=== PATIENT | male | born 1935 | race Caucasian/White ===

== ENCOUNTER 2019-04-25 18:46 | Inpatient (IN) | payer OTHER, MEDICARE ==
[2019-04-25] MEDS ORDERED: Sodium Chloride 0.9% 10 ML Syringe FLUSH PRN (19:08)
[2019-04-25] MEDS ORDERED: Sodium Chloride 0.9% 2.5 ML Syringe FLUSH PRN (19:08)
--- NOTE | 2019-04-25 19:12 | EDM.PDOC ---
ED HPI GENERAL MEDICAL PROBLEM - General Chief Complaint: Chest Pain Stated Complaint: CHEST PAIN Time Seen by Provider: 04/25/19 19:02 - History of Present Illness INITIAL COMMENTS - FREE TEXT/NARRATIVE: HISTORY AND PHYSICAL: History of present illness: The patient is an 84-year-old male who presents via [facility] with complaints of chest pain that he says started at 1 PM after he was drinking soda. The story that was given to triage and then to the mid-level provider and then to me keeps evolving and changing. The patient was seen here 2 days ago but doesn't recall being here and says that he was "not that person". He doesn' t recall getting prescriptions for his medications and he says he is only on one blood pressure medicine and one diabetic med not 2 blood pressure medicines and 2 diabetic meds. He says that in the past he has had issues with food "sticking" in his throat and he says that prior to today's symptoms he felt like there was something "sticking" but he had not eaten food recently. He drank a soda and tolerated that--" it slipped down just fine"--- and then felt this epigastric discomfort which was radiating to his lower mid chest. There is no radiation with the pain and since that time he has had 10-15 episodes of this vague discomfort in his lower mid sternum which comes and goes. It does not radiate to his back and does not seem to be associated with other symptoms but as I said his story changes depending on who the interviewer is. Initially he told us that it was a 2-3/10 but on my personal evaluation he said it was gone. He's never had abdominal pain never had nausea or vomiting and never had diarrhea. He denies his abdomen is bloated. He does not feel short of breath. The patient received aspirin and one sublingual nitroglycerin per EMS. He is evaluated here after those medications. He had told the ambulance people that his pain was a 4/10 The patient was seen here in emergency department 2 days ago on April 22 for complaints of elevated blood pressure and being out of his meds for 2 weeks. He had an EKG which is similar to today's and at that time he had no chest pain. He was given prescriptions for his diabetic meds as well as his 2 blood pressure medications Review of systems: As per history of present illness and below otherwise all systems reviewed and negative. Past medical history: As per history of present illness and as reviewed below otherwise noncontributory. Surgical history: As per history of present illness and as reviewed below otherwise noncontributory. Social history: No reported history of drug or alcohol abuse. Family history: As per history of present illness and as reviewed below otherwise noncontributory. Physical exam: General: Well-developed well-nourished man who is nontoxic and vital signs are by me. He speaking clearly and easily in the ED and is tolerating his secretions. His voice is not hoarse or muffled HEENT: Atraumatic, normocephalic, , negative for conjunctival pallor or scleral icterus, mucous membranes moist, throat clear, neck supple, nontender, trachea midline. Lungs: Clear to auscultation, breath sounds equal bilaterally, chest nontender. Heart: S1S2, regular, negative for clicks, rubs, or JVD. 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 The patient has tympany on percussion throughout his entire abdomen and he has a soft reducible umbilical hernia. Bowel sounds are hyperactive Negative for masses or hepatosplenomegaly. Negative for costovertebral tenderness. Pelvis: Stable nontender. Genitourinary: Deferred. Rectal: Deferred. Extremities: Atraumatic, negative for cords or calf pain. Neurovascular unremarkable. No pedal edema or leg asymmetry Neuro: Awake, alert, oriented. Cranial nerves II through XII unremarkable. Cerebellum unremarkable. Motor and sensory unremarkable throughout. Exam nonfocal. Diagnostics: EKG chest x-ray/abdominal films CBC CMP troponin INR UA with reflex Therapeutics: Patient received aspirin 324 mg and nitroglycerin sublingual 1 in route per EMS IV O2 monitor Protonix nitro paste Rocephin 2045: Patient has not had any chest pain here in the ED and he is aware of all testing results. We will give him a dose of Rocephin and I have consulted and spoken with Dr. Lua who agrees with admission and is aware of this full case and the odd presentation. He would like an inpatient admission Impression: Atypical epigastric/chest pain rule out esophageal spasm versus cardiac, right lower lobe pneumonia asymptomatic, history of hypertension and diabetes Definitive disposition and diagnosis as appropriate pending reevaluation and review of above. 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 ED EXAM, GENERAL - Physical Exam Exam: See Below (See dictation) Course - Vital Signs Last Recorded V/S: Last Vital Signs Temp 37.7 C 04/25/19 18:51 Pulse 82 04/25/19 20:05 Resp 16 04/25/19 20:05 BP 141/72 H 04/25/19 20:05 Pulse Ox 97 04/25/19 20:05 - Orders/Labs/Meds Orders: Active Orders 24 hr Category Date Time Status Patient Status [ADT] Stat ADT 04/25/19 20:48 Ordered Blood Glucose Check, Bedside [RC] ONETIME Care 04/25/19 19:08 Active Cardiac Monitoring [RC] . DIRECTED Care 04/25/19 19:08 Active EKG Documentation Completion [RC] STAT Care 04/25/19 19:08 Active Oxygen Therapy, ED [RC] ASDIRECTED Care 04/25/19 19:08 Active Pulse Oximetry [RC] ASDIRECTED Care 04/25/19 19:08 Active Sodium Chloride 0.9% [Saline Flush] Med 04/25/19 19:08 Active 10 ml FLUSH ASDIRECTED PRN Sodium Chloride 0.9% [Saline Flush] Med 04/25/19 19:08 Active 2.5 ml FLUSH ASDIRECTED PRN cefTRIAXone [Rocephin in Dextrose,Iso-Osm 2 GM/50 ML] 2 Med 04/25/19 20:35 Active gm Premix Bag 1 bag IV ONETIME Saline Lock Insert [OM.PC] Stat Oth 04/25/19 19:08 Ordered Medication Orders Ceftriaxone Sodium/Dextrose 2 (gm/ Premix) 50 mls @ 100 mls/hr IV ONETIME ONE Stop: 04/25/19 21:04 Last Admin: 04/25/19 20:44 Dose: 100 mls/hr Sodium Chloride (Saline Flush) 10 ml FLUSH ASDIRECTED PRN PRN Reason: Keep Vein Open Last Admin: 04/25/19 20:18 Dose: 10 ml Sodium Chloride (Saline Flush) 2.5 ml FLUSH ASDIRECTED PRN PRN Reason: Keep Vein Open Last Admin: 04/25/19 20:18 Dose: 2.5 ml Labs: Laboratory Tests 04/25/19 04/25/19 04/25/19 Range/Units 18:47 18:47 18:47 WBC 8.37 (4.0-11.0) K/uL RBC 3.60 L (4.50-5.90) M/uL Hgb 11.7 L (13.0-17.0) g/dL Hct 32.9 L (38.0-50.0) % MCV 91.4 (80.0-98.0) fL MCH 32.5 H (27.0-32.0) pg MCHC 35.6 (31.0-37.0) g/dL RDW Std Deviation 42.3 (28.0-62.0) fl RDW Coeff of Lupillo 13 (11.0-15.0) % Plt Count 194 (150-400) K/uL MPV 10.40 (7.40-12.00) fL Neut % (Auto) 77.6 (48.0-80.0) % Lymph % (Auto) 11.2 L (16.0-40.0) % [place] % (Auto) 8.2 (0.0-15.0) % Eos % (Auto) 2.5 (0.0-7.0) % Baso % (Auto) 0.5 (0.0-1.5) % Neut # (Auto) 6.5 H (1.4-5.7) K/uL Lymph # (Auto) 0.9 (0.6-2.4) K/uL [place] # (Auto) 0.7 (0.0-0.8) K/uL Eos # (Auto) 0.2 (0.0-0.7) K/uL Baso # (Auto) 0.0 (0.0-0.1) K/uL Nucleated RBC % 0.0 /100WBC Nucleated RBCs # 0 K/uL INR 1.11 Sodium 134 L (136-148) mmol/L Potassium 4.3 (3.5-5.1) mmol/L Chloride 99 (98-107) mmol/L Carbon Dioxide 25.4 (21.0-32.0) mmol/L BUN 16 (7.0-18.0) mg/dL Creatinine 1.4 H (0.8-1.3) mg/dL Est Cr Clr Drug Dosing TNP Estimated GFR (MDRD) 48.5 ml/min Glucose 259 H (74-106) mg/dL Calcium 9.8 (8.5-10.1) mg/dL Total Bilirubin 0.4 (0.2-1.0) mg/dL AST 26 (15-37) IU/L ALT 18 (14-63) IU/L Alkaline Phosphatase 122 H (46-116) U/L Troponin I < 0.050 (0.000-0.056) ng/mL Total Protein 8.1 (6.4-8.2) g/dL Albumin 3.0 L (3.4-5.0) g/dL Globulin 5.1 H (2.6-4.0) g/dL Albumin/Globulin Ratio 0.6 L (0.9-1.6) Urine Color Urine Appearance Urine pH (5.0-8.0) Ur Specific [place] (1.001-1.035) Urine Protein (NEGATIVE) mg/dL Urine Glucose (UA) (NEGATIVE) mg/dL Urine Ketones (NEGATIVE) mg/dL Urine Occult Blood (NEGATIVE) Urine Nitrite (NEGATIVE) Urine Bilirubin (NEGATIVE) Urine Urobilinogen (<2.0) EU/dL Ur Leukocyte Esterase (NEGATIVE) Urine RBC (0-2/HPF) Urine WBC (0-5/HPF) Ur Epithelial Cells (NONE-FEW) Urine Bacteria (NEGATIVE) Hyaline Casts (0-2/LPF) 04/25/19 Range/Units 19:37 WBC (4.0-11.0) K/uL RBC (4.50-5.90) M/uL Hgb (13.0-17.0) g/dL Hct (38.0-50.0) % MCV (80.0-98.0) fL MCH (27.0-32.0) pg MCHC (31.0-37.0) g/dL RDW Std Deviation (28.0-62.0) fl RDW Coeff of [place]up[place] (11.0-15.0) % Plt Count (150-400) K/uL MPV (7.40-12.00) fL Neut % (Auto) (48.0-80.0) % Lymph % (Auto) (16.0-40.0) % [place] % (Auto) (0.0-15.0) % Eos % (Auto) (0.0-7.0) % Baso % (Auto) (0.0-1.5) % Neut # (Auto) (1.4-5.7) K/uL Lymph # (Auto) (0.6-2.4) K/uL [place] # (Auto) (0.0-0.8) K/uL Eos # (Auto) (0.0-0.7) K/uL Baso # (Auto) (0.0-0.1) K/uL Nucleated RBC % /100WBC Nucleated RBCs # K/uL INR Sodium (136-148) mmol/L Potassium (3.5-5.1) mmol/L Chloride (98-107) mmol/L Carbon Dioxide (21.0-32.0) mmol/L BUN (7.0-18.0) mg/dL Creatinine (0.8-1.3) mg/dL Est Cr Clr Drug Dosing Estimated GFR (MDRD) ml/min Glucose (74-106) mg/dL Calcium (8.5-10.1) mg/dL Total Bilirubin (0.2-1.0) mg/dL AST (15-37) IU/L ALT (14-63) IU/L Alkaline Phosphatase (46-116) U/L Troponin I (0.000-0.056) ng/mL Total Protein (6.4-8.2) g/dL Albumin (3.4-5.0) g/dL Globulin (2.6-4.0) g/dL Albumin/Globulin Ratio (0.9-1.6) Urine Color YELLOW Urine Appearance SLT CLOUDY Urine pH 5.0 (5.0-8.0) Ur Specific [place] 1.020 (1.001-1.035) Urine Protein TRACE H (NEGATIVE) mg/dL Urine Glucose (UA) NEGATIVE (NEGATIVE) mg/dL Urine Ketones NEGATIVE (NEGATIVE) mg/dL Urine Occult Blood NEGATIVE (NEGATIVE) Urine Nitrite NEGATIVE (NEGATIVE) Urine Bilirubin NEGATIVE (NEGATIVE) Urine Urobilinogen 0.2 (<2.0) EU/dL Ur Leukocyte Esterase NEGATIVE (NEGATIVE) Urine RBC NONE SEEN (0-2/HPF) Urine WBC NONE SEEN (0-5/HPF) Ur Epithelial Cells RARE (NONE-FEW) Urine Bacteria RARE (NEGATIVE) Hyaline Casts 8-12 (0-2/LPF) Meds: Medications Generic Name Dose Route Start Last Admin Trade Name Freq PRN Reason Stop Dose Admin Ceftriaxone Sodium/Dextrose 2 50 mls @ 100 mls/hr 04/25/19 20:35 04/25/19 20: 44 gm/ Premix IV 04/25/19 21:04 100 mls/hr ONETIME ONE Administration Sodium Chloride 10 ml 04/25/19 19:08 04/25/19 20:18 Saline Flush FLUSH 10 ml ASDIRECTED PRN Administration Keep Vein Open Sodium Chloride 2.5 ml 04/25/19 19:08 04/25/19 20:18 Saline Flush FLUSH 2.5 ml ASDIRECTED PRN Administration Keep Vein Open Discontinued Medications Generic Name Dose Route Start Last Admin Trade Name Freq PRN Reason Stop Dose Admin Sodium Chloride Confirm 04/25/19 20:11 Normal Saline Administered 04/25/19 20:12 Dose 20 mls @ as directed .ROUTE .STK-MED ONE Nitroglycerin 0.5 gm 04/25/19 19:36 04/25/19 20:18 Nitro-Bid 2% TOP 04/25/19 19:37 0.5 gm ONETIME ONE Administration Pantoprazole Sodium 80 mg 04/25/19 19:36 04/25/19 20:17 Protonix Iv IVPUSH 04/25/19 19:37 80 mg .BOLUS ONE Administration Departure - Departure Time of Disposition: 20:50 Disposition: Admitted As Inpatient 68 Condition: Good Clinical Impression: Atypical chest pain Pneumonia Qualifiers: Pneumonia type: due to unspecified organism Laterality: right Lung location: lower lobe of lung Qualified Code(s): J18.1 - Lobar pneumonia, unspecified organism - Discharge Information Referrals: PCP,None [Primary Care Provider] - Forms: ED Department Discharge - My Orders Last 24 Hours: My Active Orders 04/25/19 19:08 Blood Glucose Check, Bedside [RC] ONETIME Cardiac Monitoring [RC] . DIRECTED EKG Documentation Completion [RC] STAT Oxygen Therapy, ED [RC] ASDIRECTED Pulse Oximetry [RC] ASDIRECTED Sodium Chloride 0.9% [Saline Flush] 10 ml FLUSH ASDIRECTED PRN Sodium Chloride 0.9% [Saline Flush] 2.5 ml FLUSH ASDIRECTED PRN Saline Lock Insert [OM.PC] Stat 04/25/19 20:35 cefTRIAXone [Rocephin in Dextrose,Iso-Osm 2 GM/50 ML] 2 gm Premix Bag 1 bag IV ONETIME 04/25/19 20:48 Patient Status [ADT] Stat - Assessment/Plan Last 24 Hours: My Active Orders 04/25/19 19:08 Blood Glucose Check, Bedside [RC] ONETIME Cardiac Monitoring [RC] . DIRECTED EKG Documentation Completion [RC] STAT Oxygen Therapy, ED [RC] ASDIRECTED Pulse Oximetry [RC] ASDIRECTED Sodium Chloride 0.9% [Saline Flush] 10 ml FLUSH ASDIRECTED PRN Sodium Chloride 0.9% [Saline Flush] 2.5 ml FLUSH ASDIRECTED PRN Saline Lock Insert [OM.PC] Stat 04/25/19 20:35 cefTRIAXone [Rocephin in Dextrose,Iso-Osm 2 GM/50 ML] 2 gm Premix Bag 1 bag IV ONETIME 04/25/19 20:48 Patient Status [ADT] Stat
[2019-04-25 19:27] LABS: CHLORIDE,CL 99 mmol/L (98-107); SODIUM,NA 134 mmol/L (136-148)
[2019-04-25] MEDS ORDERED: Pantoprazole 40 MG Vial IVPUSH ONE (19:36)
[2019-04-25] MEDS ORDERED: Nitroglycerin 2% Oint 1 GM UD Packet TOP ONE (19:36)
[2019-04-25] MEDS ORDERED: Sodium Chloride 0.9% 20 ML ONE (20:11)
--- NOTE | 2019-04-25 20:13 | CR ---
INDICATION: : Abdominal pain COMPARISON: None available. FINDINGS: Erect and supine films of the abdomen were combined with an erect film of the chest. In the abdomen, there is no sign of distention of the small bowel or colon to suggest obstruction or ileus. There is no sign of free air or distinct mass. There is mild hypertrophic change throughout the lumbar spine. The rest of the osseous structures are normal in appearance. There is moderate consolidation of the right lower lobe along with a mild right pleural effusion, findings suggestive of a right lower lobe pneumonia. The rest of the chest is clear. IMPRESSION: Normal appearance of the abdomen for the patient`s age with no sign of obstruction or ileus. Moderate consolidation of the right lower lobe with a mild right pleural effusion, suggestive of right lower lobe pneumonia. Dictated by Jadon Jones MD @ Apr 25 2019 8:11PM Signed by Dr. Jadon Jones @ Apr 25 2019 8:13PM
--- NOTE | 2019-04-25 20:16 | CR ---
HISTORY: Neck pain. COMPARISON: None available. FINDINGS: AP and lateral views of the soft tissues of the neck were obtained. The airway structures are normal in appearance. The epiglottis is normal in appearance. There is no displacement of the trachea. No radiopaque foreign bodies are evident. The prevertebral soft tissues and cervical spine are normal in appearance. There is prominent C4-5 and C5-6 disc degenerative disease. There is minimal anterior subluxation of C4 on C5. The rest of the cervical vertebral bodies are in anatomic alignment. The apices of the lungs are clear. IMPRESSION: Normal appearance of the soft tissue structures of the neck. 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 Dictated by Jadon Jones MD @ Apr 25 2019 8:13PM Signed by Dr. Jadon Jones @ Apr 25 2019 8:15PM
[2019-04-25] MEDS ORDERED: cefTRIAXone 2 GM in Premix Bag 1 BAG IV ONE (20:35)
[2019-04-25] MEDS ORDERED: Azithromycin 500 MG in Sodium Chloride 0.9% 500 ML IV SCH (22:30)
[2019-04-25] MEDS ORDERED: Azithromycin 500 MG in Sodium Chloride 0.9% 500 ML IV ONE (22:30)
[2019-04-25] MEDS ORDERED: Acetaminophen 325 MG Tab PO PRN (22:34)
[2019-04-25] MEDS ORDERED: Ondansetron 4 MG/2 ML SDV IVPUSH PRN (22:34)
[2019-04-25] MEDS: Sodium Chloride 0.9% 1,000 ML IV SCH (23:18)
--- NOTE | 2019-04-25 23:35 | PCM.HP ---
H&P History of Present Illness - General Date of Service: 04/25/19 Admit Problem/Dx: Admission Diagnosis/Problem Admission Diagnosis/Problem Pneumonia - History of Present Illness Initial Comments - Free Text/Narative: 84 yo male with pmh of hypertension, and diabetes who presents with one day history of right sided chest pain. The pain is sharp in nature and comes and goes. He has a productive cough since October of this year. About that time he states he has had a pneumonia. He denies any fevers, shortness of breath or abdominal pain. The medical record has him being seen in the ED three days ago with a complaint of hypertension and need for medication refills. He denies ever coming to the ED. - Related Data Allergies/Adverse Reactions: Allergies Allergy/AdvReac Type Severity Reaction Status Date / Time Sheng Allergy Cannot Uncoded 04/25/19 21:53 Remember Home Medications: Home Meds Lisinopril 1 tab PO DAILY 05/11/15 [History] NIFEdipine [Nifedipine ER] 2 tab PO BID 05/11/15 [History] metFORMIN [Glucophage] 1 tab PO BID 05/11/15 [History] Aspirin [Halfprin] 81 mg PO DAILY 04/25/19 [History] Ascorbate Calcium [Vitamin C] 500 mg PO BID 04/26/19 [History] Cholecalciferol (Vitamin D3) [Vitamin D3] PO DAILY 04/26/19 [History] Krill Oil 04/26/19 [History] Ubidecarenone [Co Q-10] 04/26/19 [History] Vitamin E 04/26/19 [History] Past Medical History Other HEENT History: 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 Cardiovascular History: Reports: Hypertension Endocrine/Metabolic History: Reports: Diabetes, Type II - Infectious Disease History Infectious Disease History: Reports: None Social & Family History - Family History Family Medical History: Noncontributory - Tobacco Use Smoking Status *Q: Former Smoker Used Tobacco, but Quit: Yes Month/Year Tobacco Last Used: 1985 Second Hand Smoke Exposure: No - Caffeine Use Caffeine Use: Reports: Coffee Caffeine Use Comment: 1 pot of coffee every morning - Recreational Drug Use Recreational Drug Use: No H&P Review of Systems - Review of Systems: Review Of Systems: ROS reveals no pertinent complaints other than HPI. Exam - Exam Exam: See Below - Vital Signs Vital Signs: Last Vital Signs Temp 36.4 C 04/25/19 21:49 Pulse 87 04/25/19 21:49 Resp 20 04/25/19 21:49 BP 139/73 04/25/19 21:49 Pulse Ox 94 L 04/25/19 21:49 Weight: 89.176 kg - Exam General: Alert, Oriented HEENT: Mucosa Moist & [place] Neck: Supple, Trachea Midline Lungs: Clear to Auscultation, Normal Respiratory Effort Cardiovascular: Regular Rate, Regular Rhythm GI/Abdominal Exam: Soft, Non-Tender Extremities: Non-Tender, No Pedal Edema Skin: Warm, Dry, Intact Neurological: Cranial Nerves Intact Neuro Extensive - Mental Status: Alert, Oriented x3, Other (does not know who president is, or any current events.) - Patient Data Lab Results Last 24 hrs: Laboratory Results - last 24 hr 04/25/19 04/25/19 04/25/19 Range/Units 18:47 18:47 18:47 WBC 8.37 (4.0-11.0) K/uL RBC 3.60 L (4.50-5.90) M/uL Hgb 11.7 L (13.0-17.0) g/dL Hct 32.9 L (38.0-50.0) % MCV 91.4 (80.0-98.0) fL MCH 32.5 H (27.0-32.0) pg MCHC 35.6 (31.0-37.0) g/dL RDW Std Deviation 42.3 (28.0-62.0) fl RDW Coeff of Lupillo 13 (11.0-15.0) % Plt Count 194 (150-400) K/uL MPV 10.40 (7.40-12.00) fL Neut % (Auto) 77.6 (48.0-80.0) % Lymph % (Auto) 11.2 L (16.0-40.0) % [place] % (Auto) 8.2 (0.0-15.0) % Eos % (Auto) 2.5 (0.0-7.0) % Baso % (Auto) 0.5 (0.0-1.5) % Neut # (Auto) 6.5 H (1.4-5.7) K/uL Lymph # (Auto) 0.9 (0.6-2.4) K/uL [place] # (Auto) 0.7 (0.0-0.8) K/uL Eos # (Auto) 0.2 (0.0-0.7) K/uL Baso # (Auto) 0.0 (0.0-0.1) K/uL Nucleated RBC % 0.0 /100WBC Nucleated RBCs # 0 K/uL INR 1.11 Sodium 134 L (136-148) mmol/L Potassium 4.3 (3.5-5.1) mmol/L Chloride 99 (98-107) mmol/L Carbon Dioxide 25.4 (21.0-32.0) mmol/L BUN 16 (7.0-18.0) mg/dL Creatinine 1.4 H (0.8-1.3) mg/dL Est Cr Clr Drug Dosing TNP Estimated GFR (MDRD) 48.5 ml/min Glucose 259 H (74-106) mg/dL Calcium 9.8 (8.5-10.1) mg/dL Total Bilirubin 0.4 (0.2-1.0) mg/dL AST 26 (15-37) IU/L ALT 18 (14-63) IU/L Alkaline Phosphatase 122 H (46-116) U/L Troponin I < 0.050 (0.000-0.056) ng/mL Total Protein 8.1 (6.4-8.2) g/dL Albumin 3.0 L (3.4-5.0) g/dL Globulin 5.1 H (2.6-4.0) g/dL Albumin/Globulin Ratio 0.6 L (0.9-1.6) Urine Color Urine Appearance Urine pH (5.0-8.0) Ur Specific [place] (1.001-1.035) Urine Protein (NEGATIVE) mg/dL Urine Glucose (UA) (NEGATIVE) mg/dL Urine Ketones (NEGATIVE) mg/dL Urine Occult Blood (NEGATIVE) Urine Nitrite (NEGATIVE) Urine Bilirubin (NEGATIVE) Urine Urobilinogen (<2.0) EU/dL Ur Leukocyte Esterase (NEGATIVE) Urine RBC (0-2/HPF) Urine WBC (0-5/HPF) Ur Epithelial Cells (NONE-FEW) Urine Bacteria (NEGATIVE) Hyaline Casts (0-2/LPF) 07/10/19 Range/Units 19:37 WBC (4.0-11.0) K/uL RBC (4.50-5.90) M/uL Hgb (13.0-17.0) g/dL Hct (38.0-50.0) % MCV (80.0-98.0) fL MCH (27.0-32.0) pg MCHC (31.0-37.0) g/dL RDW Std Deviation (28.0-62.0) fl RDW Coeff of Lupillo (11.0-15.0) % Plt Count (150-400) K/uL MPV (7.40-12.00) fL Neut % (Auto) (48.0-80.0) % Lymph % (Auto) (16.0-40.0) % [place] % (Auto) (0.0-15.0) % Eos % (Auto) (0.0-7.0) % Baso % (Auto) (0.0-1.5) % Neut # (Auto) (1.4-5.7) K/uL Lymph # (Auto) (0.6-2.4) K/uL [place] # (Auto) (0.0-0.8) K/uL Eos # (Auto) (0.0-0.7) K/uL Baso # (Auto) (0.0-0.1) K/uL Nucleated RBC % /100WBC Nucleated RBCs # K/uL INR Sodium (136-148) mmol/L Potassium (3.5-5.1) mmol/L Chloride (98-107) mmol/L Carbon Dioxide (21.0-32.0) mmol/L BUN (7.0-18.0) mg/dL Creatinine (0.8-1.3) mg/dL Est Cr Clr Drug Dosing Estimated GFR (MDRD) ml/min Glucose (74-106) mg/dL Calcium (8.5-10.1) mg/dL Total Bilirubin (0.2-1.0) mg/dL AST (15-37) IU/L ALT (14-63) IU/L Alkaline Phosphatase (46-116) U/L Troponin I (0.000-0.056) ng/mL Total Protein (6.4-8.2) g/dL Albumin (3.4-5.0) g/dL Globulin (2.6-4.0) g/dL Albumin/Globulin Ratio (0.9-1.6) Urine Color YELLOW Urine Appearance SLT CLOUDY Urine pH 5.0 (5.0-8.0) Ur Specific [place] 1.020 (1.001-1.035) Urine Protein TRACE H (NEGATIVE) mg/dL Urine Glucose (UA) NEGATIVE (NEGATIVE) mg/dL Urine Ketones NEGATIVE (NEGATIVE) mg/dL Urine Occult Blood NEGATIVE (NEGATIVE) Urine Nitrite NEGATIVE (NEGATIVE) Urine Bilirubin NEGATIVE (NEGATIVE) Urine Urobilinogen 0.2 (<2.0) EU/dL Ur Leukocyte Esterase NEGATIVE (NEGATIVE) Urine RBC NONE SEEN (0-2/HPF) Urine WBC NONE SEEN (0-5/HPF) Ur Epithelial Cells RARE (NONE-FEW) Urine Bacteria RARE (NEGATIVE) Hyaline Casts 8-12 (0-2/LPF) Result Diagrams: 04/26/19 05:00 04/26/19 05:00 Problem List Initiated/Reviewed/Updated: Yes Orders Last 24hrs: Active Orders 24 hr Category Date Time Status Patient Status [ADT] Stat ADT 04/25/19 20:48 Active Antiembolic Devices [RC] PER UNIT ROUTINE Care 04/25/19 23:28 Ordered Blood Glucose Check, Bedside [RC] ONETIME Care 04/25/19 19:08 Active Blood Glucose Check, Bedside [RC] TIDAC Care 04/25/19 22:33 Active Cardiac Monitoring [RC] . DIRECTED Care 04/25/19 19:08 Active Oxygen Therapy [RC] PRN Care 04/25/19 23:27 Ordered Oxygen Therapy, ED [RC] ASDIRECTED Care 04/25/19 19:08 Active Pulse Oximetry [RC] ASDIRECTED Care 04/25/19 19:08 Active Telemetry Monitoring [Cardiac Monitoring] [RC] . Care 04/25/19 22:40 Active DIRECTED Up ad Janine [RC] ASDIRECTED Care 04/25/19 23:27 Ordered VTE/DVT Education [RC] PER UNIT ROUTINE Care 04/25/19 23:27 Ordered Vital Signs [RC] Q4H Care 04/25/19 23:27 Ordered ADA Diabetic [[place] [employer] Diet] [DIET Diet 04/26/19 Breakfast Active ] BASIC METABOLIC PANEL,BMP [CHEM] Routine Lab 04/26/19 05:00 Ordered CBC WITH AUTO DIFF [HEME] Routine Lab 04/26/19 05:00 Ordered TROPONIN I [CHEM] Routine Lab 04/26/19 01:00 Ordered TROPONIN I [CHEM] Routine Lab 04/26/19 07:00 Ordered Acetaminophen [Tylenol] Med 04/25/19 22:34 Active 325 mg PO Q4H PRN Azithromycin [Zithromax] 500 mg Med 04/25/19 22:30 Active Sodium Chloride 0.9% [Normal Saline] 500 ml IV Q24H Insulin Aspart [NovoLOG] Med 04/26/19 07:30 Active See Protocol SUBCUT ACBED Lisinopril Med 04/26/19 09:00 Ordered 1 tab PO DAILY Ondansetron [Zofran] Med 04/25/19 22:34 Active 4 mg IVPUSH Q4H PRN Sodium Chloride 0.9% [Normal Saline] 1,000 ml Med 04/25/19 22:45 Active IV ASDIRECTED Sodium Chloride 0.9% [Saline Flush] Med 04/25/19 19:08 Active 10 ml FLUSH ASDIRECTED PRN Sodium Chloride 0.9% [Saline Flush] Med 04/25/19 19:08 Active 2.5 ml FLUSH ASDIRECTED PRN cefTRIAXone [Rocephin in Dextrose,Iso-Osm 1 GM/50 ML] 1 Med 04/26/19 21:00 Active gm Premix Bag 1 bag IV Q24H metFORMIN [Glucophage] Med 04/26/19 09:00 Ordered 850 mg PO BID Saline Lock Insert [OM.PC] Stat Oth 04/25/19 19:08 Ordered Sequential Compression Device [OM.PC] Per Unit Routine Oth 04/25/19 23:27 Ordered Resuscitation Status Routine Resus Stat 04/25/19 23:27 Ordered Medication Orders Acetaminophen (Tylenol) 325 mg PO Q4H PRN PRN Reason: Pain Ceftriaxone Sodium/Dextrose 1 (gm/ Premix) 50 mls @ 100 mls/hr IV Q24H [facility] Azithromycin 500 mg/ Sodium (Chloride) 500 mls @ 250 mls/hr IV Q24H [facility] Sodium Chloride (Normal Saline) 1,000 mls @ 125 mls/hr IV ASDIRECTED [facility] Last Admin: 04/25/19 23:18 Dose: 125 mls/hr Insulin Aspart (Novolog) 0 unit SUBCUT ACBED [facility]; Protocol Metformin HCl (Glucophage) 850 mg PO BID [facility] Non-Formulary Medication (Lisinopril) 1 tab PO DAILY [facility] Ondansetron HCl (Zofran) 4 mg IVPUSH Q4H PRN PRN Reason: Nausea Sodium Chloride (Saline Flush) 10 ml FLUSH ASDIRECTED PRN PRN Reason: Keep Vein Open Last Admin: 04/25/19 20:18 Dose: 10 ml Sodium Chloride (Saline Flush) 2.5 ml FLUSH ASDIRECTED PRN PRN Reason: Keep Vein Open Last Admin: 04/25/19 20:18 Dose: 2.5 ml Assessment/Plan Comment:: 84 yo male who presented with chest pain. We will admitt for pneumonia and treat with Rocephin and azithromycin. We may consider CT chest considering his chronic cough and atypical presentation. Patient may have mild cognitive impairment.
[2019-04-25] MEDS: Azithromycin 500 MG in Sodium Chloride 0.9% 250 ML IV SCH (23:38)
[2019-04-26] MEDS: Insulin Aspart 100 Units/ML 3 ML Pen SUBCUT SCH ×4 (09:17→21:22)
[2019-04-26] MEDS: Sodium Chloride 0.9% 1,000 ML IV SCH ×2 (09:23→18:21)
[2019-04-26] MEDS: Lisinopril 10 MG Tab PO SCH (09:28)
--- NOTE | 2019-04-26 10:16 | PCM.PN ---
- General Info Date of Service: 04/26/19 - Review of Systems Systems Review Comment:: patient still having chest pain - Patient Data Vitals - Most Recent: Last Vital Signs Temp 36.8 C 04/26/19 04:15 Pulse 85 04/26/19 04:15 Resp 20 04/26/19 04:15 BP 139/66 04/26/19 09:28 Pulse Ox 94 L 04/26/19 04:15 Weight - Most Recent: 89.176 kg I&O - Last 24 Hours: Intake & Output 04/25/19 04/26/19 04/26/19 22:59 06:59 14:59 Intake Total 920 Output Total 475 Balance 445 Lab Results Last 24 Hours: Laboratory Results - last 24 hr 04/25/19 04/25/19 04/25/19 Range/Units 18:47 18:47 18:47 WBC 8.37 (4.0-11.0) K/uL RBC 3.60 L (4.50-5.90) M/uL Hgb 11.7 L (13.0-17.0) g/dL Hct 32.9 L (38.0-50.0) % MCV 91.4 (80.0-98.0) fL MCH 32.5 H (27.0-32.0) pg MCHC 35.6 (31.0-37.0) g/dL RDW Std Deviation 42.3 (28.0-62.0) fl RDW Coeff of Lupillo 13 (11.0-15.0) % Plt Count 194 (150-400) K/uL MPV 10.40 (7.40-12.00) fL Neut % (Auto) 77.6 (48.0-80.0) % Lymph % (Auto) 11.2 L (16.0-40.0) % [place] % (Auto) 8.2 (0.0-15.0) % Eos % (Auto) 2.5 (0.0-7.0) % Baso % (Auto) 0.5 (0.0-1.5) % Neut # (Auto) 6.5 H (1.4-5.7) K/uL Lymph # (Auto) 0.9 (0.6-2.4) K/uL [place] # (Auto) 0.7 (0.0-0.8) K/uL Eos # (Auto) 0.2 (0.0-0.7) K/uL Baso # (Auto) 0.0 (0.0-0.1) K/uL Nucleated RBC % 0.0 /100WBC Nucleated RBCs # 0 K/uL INR 1.11 Sodium 134 L (136-148) mmol/L Potassium 4.3 (3.5-5.1) mmol/L Chloride 99 (98-107) mmol/L Carbon Dioxide 25.4 (21.0-32.0) mmol/L BUN 16 (7.0-18.0) mg/dL Creatinine 1.4 H (0.8-1.3) mg/dL Est Cr Clr Drug Dosing TNP Estimated GFR (MDRD) 48.5 ml/min Glucose 259 H (74-106) mg/dL POC Glucose (60-110) mg/dL Calcium 9.8 (8.5-10.1) mg/dL Total Bilirubin 0.4 (0.2-1.0) mg/dL AST 26 (15-37) IU/L ALT 18 (14-63) IU/L Alkaline Phosphatase 122 H (46-116) U/L Troponin I < 0.050 (0.000-0.056) ng/mL Total Protein 8.1 (6.4-8.2) g/dL Albumin 3.0 L (3.4-5.0) g/dL Globulin 5.1 H (2.6-4.0) g/dL Albumin/Globulin Ratio 0.6 L (0.9-1.6) Urine Color Urine Appearance Urine pH (5.0-8.0) Ur Specific [place] (1.001-1.035) Urine Protein (NEGATIVE) mg/dL Urine Glucose (UA) (NEGATIVE) mg/dL Urine Ketones (NEGATIVE) mg/dL Urine Occult Blood (NEGATIVE) Urine Nitrite (NEGATIVE) Urine Bilirubin (NEGATIVE) Urine Urobilinogen (<2.0) EU/dL Ur Leukocyte Esterase (NEGATIVE) Urine RBC (0-2/HPF) Urine WBC (0-5/HPF) Ur Epithelial Cells (NONE-FEW) Urine Bacteria (NEGATIVE) Hyaline Casts (0-2/LPF) 04/25/19 04/26/19 04/26/19 Range/Units 19:37 01:00 05:00 WBC 8.30 (4.0-11.0) K/uL RBC 3.45 L (4.50-5.90) M/uL Hgb 11.2 L (13.0-17.0) g/dL Hct 31.6 L (38.0-50.0) % MCV 91.6 (80.0-98.0) fL MCH 32.5 H (27.0-32.0) pg MCHC 35.4 (31.0-37.0) g/dL RDW Std Deviation 42.4 (28.0-62.0) fl RDW Coeff of [place]up[place] 13 (11.0-15.0) % Plt Count 171 (150-400) K/uL MPV 9.90 (7.40-12.00) fL Neut % (Auto) 76.8 (48.0-80.0) % Lymph % (Auto) 10.7 L (16.0-40.0) % [place] % (Auto) 9.0 (0.0-15.0) % Eos % (Auto) 3.1 (0.0-7.0) % Baso % (Auto) 0.4 (0.0-1.5) % Neut # (Auto) 6.4 H (1.4-5.7) K/uL Lymph # (Auto) 0.9 (0.6-2.4) K/uL [place] # (Auto) 0.8 (0.0-0.8) K/uL Eos # (Auto) 0.3 (0.0-0.7) K/uL Baso # (Auto) 0.0 (0.0-0.1) K/uL Nucleated RBC % 0.0 /100WBC Nucleated RBCs # 0 K/uL INR Sodium (136-148) mmol/L Potassium (3.5-5.1) mmol/L Chloride (98-107) mmol/L Carbon Dioxide (21.0-32.0) mmol/L BUN (7.0-18.0) mg/dL Creatinine (0.8-1.3) mg/dL Est Cr Clr Drug Dosing Estimated GFR (MDRD) ml/min Glucose (74-106) mg/dL POC Glucose (60-110) mg/dL Calcium (8.5-10.1) mg/dL Total Bilirubin (0.2-1.0) mg/dL AST (15-37) IU/L ALT (14-63) IU/L Alkaline Phosphatase (46-116) U/L Troponin I < 0.050 (0.000-0.056) ng/mL Total Protein (6.4-8.2) g/dL Albumin (3.4-5.0) g/dL Globulin (2.6-4.0) g/dL Albumin/Globulin Ratio (0.9-1.6) Urine Color YELLOW Urine Appearance SLT CLOUDY Urine pH 5.0 (5.0-8.0) Ur Specific [place] 1.020 (1.001-1.035) Urine Protein TRACE H (NEGATIVE) mg/dL Urine Glucose (UA) NEGATIVE (NEGATIVE) mg/dL Urine Ketones NEGATIVE (NEGATIVE) mg/dL Urine Occult Blood NEGATIVE (NEGATIVE) Urine Nitrite NEGATIVE (NEGATIVE) Urine Bilirubin NEGATIVE (NEGATIVE) Urine Urobilinogen 0.2 (<2.0) EU/dL Ur Leukocyte Esterase NEGATIVE (NEGATIVE) Urine RBC NONE SEEN (0-2/HPF) Urine WBC NONE SEEN (0-5/HPF) Ur Epithelial Cells RARE (NONE-FEW) Urine Bacteria RARE (NEGATIVE) Hyaline Casts 8-12 (0-2/LPF) 04/26/19 04/26/19 04/26/19 Range/Units 05:00 06:44 06:55 WBC (4.0-11.0) K/uL RBC (4.50-5.90) M/uL Hgb (13.0-17.0) g/dL Hct (38.0-50.0) % MCV (80.0-98.0) fL MCH (27.0-32.0) pg MCHC (31.0-37.0) g/dL RDW Std Deviation (28.0-62.0) fl RDW Coeff of Lupillo (11.0-15.0) % Plt Count (150-400) K/uL MPV (7.40-12.00) fL Neut % (Auto) (48.0-80.0) % Lymph % (Auto) (16.0-40.0) % Bennett % (Auto) (0.0-15.0) % Eos % (Auto) (0.0-7.0) % Baso % (Auto) (0.0-1.5) % Neut # (Auto) (1.4-5.7) K/uL Lymph # (Auto) (0.6-2.4) K/uL Bennett # (Auto) (0.0-0.8) K/uL Eos # (Auto) (0.0-0.7) K/uL Baso # (Auto) (0.0-0.1) K/uL Nucleated RBC % /100WBC Nucleated RBCs # K/uL INR Sodium 137 (136-148) mmol/L Potassium 4.2 (3.5-5.1) mmol/L Chloride 103 (98-107) mmol/L Carbon Dioxide 27.2 (21.0-32.0) mmol/L BUN 15 (7.0-18.0) mg/dL Creatinine 1.3 (0.8-1.3) mg/dL Est Cr Clr Drug Dosing 40.96 Estimated GFR (MDRD) 52.9 ml/min Glucose 163 H (74-106) mg/dL POC Glucose 178 H (60-110) mg/dL Calcium 9.1 (8.5-10.1) mg/dL Total Bilirubin (0.2-1.0) mg/dL AST (15-37) IU/L ALT (14-63) IU/L Alkaline Phosphatase (46-116) U/L Troponin I < 0.050 (0.000-0.056) ng/mL Total Protein (6.4-8.2) g/dL Albumin (3.4-5.0) g/dL Globulin (2.6-4.0) g/dL Albumin/Globulin Ratio (0.9-1.6) Urine Color Urine Appearance Urine pH (5.0-8.0) Ur Specific [place] (1.001-1.035) Urine Protein (NEGATIVE) mg/dL Urine Glucose (UA) (NEGATIVE) mg/dL Urine Ketones (NEGATIVE) mg/dL Urine Occult Blood (NEGATIVE) Urine Nitrite (NEGATIVE) Urine Bilirubin (NEGATIVE) Urine Urobilinogen (<2.0) EU/dL Ur Leukocyte Esterase (NEGATIVE) Urine RBC (0-2/HPF) Urine WBC (0-5/HPF) Ur Epithelial Cells (NONE-FEW) Urine Bacteria (NEGATIVE) Hyaline Casts (0-2/LPF) Med Orders - Current: Current Medications Acetaminophen (Tylenol) 325 mg PO Q4H PRN PRN Reason: Pain Ceftriaxone Sodium/Dextrose 1 (gm/ Premix) 50 mls @ 100 mls/hr IV Q24H [facility] Sodium Chloride (Normal Saline) 1,000 mls @ 125 mls/hr IV ASDIRECTED [facility] Last Admin: 04/26/19 09:23 Dose: 125 mls/hr Azithromycin 500 mg/ Sodium (Chloride) 250 mls @ 125 mls/hr IV Q24H [facility] Last Admin: 04/25/19 23:38 Dose: 125 mls/hr Insulin Aspart (Novolog) 0 unit SUBCUT ACBED [facility]; Protocol Last Admin: 04/26/19 09:17 Dose: 1 unit Lisinopril (Prinivil) 20 mg PO DAILY [facility] Last Admin: 04/26/19 09:28 Dose: 20 mg Metformin HCl (Glucophage) 850 mg PO BID [facility] Last Admin: 04/26/19 09:29 Dose: 850 mg Ondansetron HCl (Zofran) 4 mg IVPUSH Q4H PRN PRN Reason: Nausea Sodium Chloride (Saline Flush) 10 ml FLUSH ASDIRECTED PRN PRN Reason: Keep Vein Open Last Admin: 04/25/19 20:18 Dose: 10 ml Sodium Chloride (Saline Flush) 2.5 ml FLUSH ASDIRECTED PRN PRN Reason: Keep Vein Open Last Admin: 04/25/19 20:18 Dose: 2.5 ml Discontinued Medications Sodium Chloride (Normal Saline) Confirm Administered Dose 20 mls @ as directed .ROUTE .STK-MED ONE Stop: 04/25/19 20:12 Last Admin: 04/25/19 23:41 Dose: Not Given Ceftriaxone Sodium/Dextrose 2 (gm/ Premix) 50 mls @ 100 mls/hr IV ONETIME ONE Stop: 04/25/19 21:04 Last Admin: 04/25/19 20:44 Dose: 100 mls/hr Azithromycin 500 mg/ Sodium (Chloride) 500 mls @ 250 mls/hr IV Q24H [facility] Last Admin: 04/25/19 23:42 Dose: Not Given Nitroglycerin (Nitro-Bid 2%) 0.5 gm TOP ONETIME ONE Stop: 04/25/19 19:37 Last Admin: 04/25/19 20:18 Dose: 0.5 gm Pantoprazole Sodium (Protonix Iv) 80 mg IVPUSH .BOLUS ONE Stop: 04/25/19 19:37 Last Admin: 04/25/19 20:17 Dose: 80 mg - Exam General: Alert, Oriented HEENT: Mucous Membr. Moist/[place] Neck: Supple Lungs: Clear to Auscultation, Normal Respiratory Effort Cardiovascular: Regular Rate, Regular Rhythm Extremities: Non-Tender, No Pedal Edema Skin: Warm, Dry, Intact - Problem List Review Problem List Initiated/Reviewed/Updated: Yes - My Orders Last 24 Hours: My Active Orders 04/25/19 22:33 Blood Glucose Check, Bedside [RC] TIDAC 04/25/19 22:34 Acetaminophen [Tylenol] 325 mg PO Q4H PRN Ondansetron [Zofran] 4 mg IVPUSH Q4H PRN 04/25/19 22:40 Telemetry Monitoring [Cardiac Monitoring] [RC] Q8H 04/25/19 22:45 Sodium Chloride 0.9% [Normal Saline] 1,000 ml IV ASDIRECTED 04/25/19 23:27 Oxygen Therapy [RC] PRN Up ad Janine [RC] ASDIRECTED VTE/DVT Education [RC] PER UNIT ROUTINE Vital Signs [RC] Q4H Sequential Compression Device [OM.PC] Per Unit Routine Resuscitation Status Routine 04/25/19 23:28 Antiembolic Devices [RC] PER UNIT ROUTINE 04/25/19 23:29 Azithromycin [Zithromax] 500 mg Sodium Chloride 0.9% [Normal Saline] 250 ml IV Q24H 04/26/19 07:30 Insulin Aspart [NovoLOG] See Protocol SUBCUT ACBED 04/26/19 09:00 Lisinopril [Prinivil] 20 mg PO DAILY metFORMIN [Glucophage] 850 mg PO BID 04/26/19 10:12 Chest w Cont [CT] Routine 04/26/19 10:15 Pantoprazole [ProTONIX] 40 mg PO DAILY 04/26/19 21:00 cefTRIAXone [Rocephin in Dextrose,Iso-Osm 1 GM/50 ML] 1 gm Premix Bag 1 bag IV Q24H 04/26/19 Breakfast ADA Diabetic [[place] [employer] Diet] [DIET] - Plan Plan:: 84 yo male who presented with chest pain who has consolidation seen on CXR. We are treating for pneumonia with Rocephin and azithromycin. We will check CT scan of chest due to chronic nonproductive cough without fever.
[2019-04-26] MEDS: Pantoprazole 40 MG Tab.CR PO SCH (11:56)
--- NOTE | 2019-04-26 15:49 | CT ---
EXAMINATION: CT chest with contrast HISTORY: Chest pain COMPARISON: None TECHNIQUE: Axial CT imaging obtained through the chest without contrast. Coronal and sagittal reconstructions obtained. FINDINGS: There is a small to moderate right pleural effusion. As rounded appearing right basilar atelectasis. Otherwise no definite focal consolidation. The heart is normal in size without a significant pericardial effusion. Thoracic aorta is normal in caliber. The main and central pulmonary arteries appear patent. No mediastinal, hilar, or axillary lymphadenopathy. Central airways are clear. Moderate coronary artery calcifications are noted. There is moderate retroperitoneal lymphadenopathy. The liver is nodular in contour with a trace perihepatic fluid. Cholelithiasis. No suspicious osseous abnormalities identified. IMPRESSION: 1. Small to moderate right pleural effusion with adjacent atelectasis. 2. Retroperitoneal lymphadenopathy, suspicious for a malignant process. 3. Nodular liver consistent with cirrhosis. 4. Trace perihepatic fluid. 5. Cholelithiasis. 6. Moderate coronary artery calcifications.
[2019-04-26] MEDS ORDERED: Iopamidol 755 MG/ML 500 ML Multipack Bottle IVPUSH ONE (15:52)
[2019-04-26] MEDS ORDERED: cefTRIAXone 1 GM in Premix Bag 1 BAG IV SCH (21:00)
[2019-04-27] MEDS: Azithromycin 500 MG in Sodium Chloride 0.9% 250 ML IV SCH (01:03)
[2019-04-27] MEDS: Sodium Chloride 0.9% 1,000 ML IV SCH (04:28)
[2019-04-27] MEDS: Insulin Aspart 100 Units/ML 3 ML Pen SUBCUT SCH ×2 (06:40→11:42)
--- NOTE | 2019-04-27 08:59 | PCM.PN ---
- General Info Date of Service: 04/27/19 Admission Dx/Problem (Free Text): Admission Diagnosis/Problem Admission Diagnosis/Problem Pneumonia - Patient Data Vitals - Most Recent: Last Vital Signs Temp 97.7 F 04/27/19 07:44 Pulse 88 04/27/19 07:44 Resp 18 04/27/19 07:44 BP 189/76 H 04/27/19 07:44 Pulse Ox 95 04/27/19 07:44 Weight - Most Recent: 89.176 kg I&O - Last 24 Hours: Intake & Output 04/26/19 04/27/19 04/27/19 22:59 06:59 14:59 Intake Total 2430 1980 Output Total 920 720 Balance 1510 1260 Lab Results Last 24 Hours: Laboratory Results - last 24 hr 04/26/19 04/26/19 04/26/19 Range/Units 11:39 17:57 21:17 WBC (4.0-11.0) K/uL RBC (4.50-5.90) M/uL Hgb (13.0-17.0) g/dL Hct (38.0-50.0) % MCV (80.0-98.0) fL MCH (27.0-32.0) pg MCHC (31.0-37.0) g/dL RDW Std Deviation (28.0-62.0) fl RDW Coeff of Lupillo (11.0-15.0) % Plt Count (150-400) K/uL MPV (7.40-12.00) fL Neut % (Auto) (48.0-80.0) % Lymph % (Auto) (16.0-40.0) % [place] % (Auto) (0.0-15.0) % Eos % (Auto) (0.0-7.0) % Baso % (Auto) (0.0-1.5) % Neut # (Auto) (1.4-5.7) K/uL Lymph # (Auto) (0.6-2.4) K/uL [place] # (Auto) (0.0-0.8) K/uL Eos # (Auto) (0.0-0.7) K/uL Baso # (Auto) (0.0-0.1) K/uL Nucleated RBC % /100WBC Nucleated RBCs # K/uL Sodium (136-148) mmol/L Potassium (3.5-5.1) mmol/L Chloride (98-107) mmol/L Carbon Dioxide (21.0-32.0) mmol/L BUN (7.0-18.0) mg/dL Creatinine (0.8-1.3) mg/dL Est Cr Clr Drug Dosing mL/min Estimated GFR (MDRD) ml/min Glucose (74-106) mg/dL POC Glucose 182 H 156 H 175 H (60-110) mg/dL Calcium (8.5-10.1) mg/dL Total Bilirubin (0.2-1.0) mg/dL AST (15-37) IU/L ALT (14-63) IU/L Alkaline Phosphatase (46-116) U/L Total Protein (6.4-8.2) g/dL Albumin (3.4-5.0) g/dL Globulin (2.6-4.0) g/dL Albumin/Globulin Ratio (0.9-1.6) 04/27/19 04/27/19 04/27/19 Range/Units 05:10 05:10 06:04 WBC 8.79 (4.0-11.0) K/uL RBC 3.40 L (4.50-5.90) M/uL Hgb 10.9 L (13.0-17.0) g/dL Hct 31.3 L (38.0-50.0) % MCV 92.1 (80.0-98.0) fL MCH 32.1 H (27.0-32.0) pg MCHC 34.8 (31.0-37.0) g/dL RDW Std Deviation 42.8 (28.0-62.0) fl RDW Coeff of Lupillo 13 (11.0-15.0) % Plt Count 169 (150-400) K/uL MPV 9.90 (7.40-12.00) fL Neut % (Auto) 79.7 (48.0-80.0) % Lymph % (Auto) 10.9 L (16.0-40.0) % [place] % (Auto) 6.7 (0.0-15.0) % Eos % (Auto) 2.4 (0.0-7.0) % Baso % (Auto) 0.3 (0.0-1.5) % Neut # (Auto) 7.0 H (1.4-5.7) K/uL Lymph # (Auto) 1.0 (0.6-2.4) K/uL [place] # (Auto) 0.6 (0.0-0.8) K/uL Eos # (Auto) 0.2 (0.0-0.7) K/uL Baso # (Auto) 0.0 (0.0-0.1) K/uL Nucleated RBC % 0.0 /100WBC Nucleated RBCs # 0 K/uL Sodium 139 (136-148) mmol/L Potassium 4.7 (3.5-5.1) mmol/L Chloride 105 (98-107) mmol/L Carbon Dioxide 26.9 (21.0-32.0) mmol/L BUN 16 (7.0-18.0) mg/dL Creatinine 1.3 (0.8-1.3) mg/dL Est Cr Clr Drug Dosing 40.96 mL/min Estimated GFR (MDRD) 52.9 ml/min Glucose 128 H (74-106) mg/dL POC Glucose 126 H (60-110) mg/dL Calcium 8.7 (8.5-10.1) mg/dL Total Bilirubin 0.3 (0.2-1.0) mg/dL AST 23 (15-37) IU/L ALT 17 (14-63) IU/L Alkaline Phosphatase 92 (46-116) U/L Total Protein 6.8 (6.4-8.2) g/dL Albumin 2.4 L (3.4-5.0) g/dL Globulin 4.4 H (2.6-4.0) g/dL Albumin/Globulin Ratio 0.6 L (0.9-1.6) Med Orders - Current: Current Medications Acetaminophen (Tylenol) 325 mg PO Q4H PRN PRN Reason: Pain Ceftriaxone Sodium/Dextrose 1 (gm/ Premix) 50 mls @ 100 mls/hr IV Q24H [facility] Last Admin: 04/26/19 21:19 Dose: 100 mls/hr Sodium Chloride (Normal Saline) 1,000 mls @ 125 mls/hr IV ASDIRECTED [facility] Last Admin: 04/27/19 04:28 Dose: 125 mls/hr Azithromycin 500 mg/ Sodium (Chloride) 250 mls @ 125 mls/hr IV Q24H [facility] Last Admin: 04/27/19 01:03 Dose: 125 mls/hr Insulin Aspart (Novolog) 0 unit SUBCUT ACBED [facility]; Protocol Last Admin: 04/27/19 06:40 Dose: Not Given Lisinopril (Prinivil) 20 mg PO DAILY [facility] Last Admin: 04/26/19 09:28 Dose: 20 mg Metformin HCl (Glucophage) 850 mg PO BID [facility] Last Admin: 04/26/19 21:18 Dose: 850 mg Ondansetron HCl (Zofran) 4 mg IVPUSH Q4H PRN PRN Reason: Nausea Pantoprazole Sodium (Protonix) 40 mg PO DAILY [facility] Last Admin: 04/26/19 11:56 Dose: 40 mg Sodium Chloride (Saline Flush) 10 ml FLUSH ASDIRECTED PRN PRN Reason: Keep Vein Open Last Admin: 04/25/19 20:18 Dose: 10 ml Sodium Chloride (Saline Flush) 2.5 ml FLUSH ASDIRECTED PRN PRN Reason: Keep Vein Open Last Admin: 04/25/19 20:18 Dose: 2.5 ml Discontinued Medications Sodium Chloride (Normal Saline) Confirm Administered Dose 20 mls @ as directed .ROUTE .STK-MED ONE Stop: 04/25/19 20:12 Last Admin: 04/25/19 23:41 Dose: Not Given Ceftriaxone Sodium/Dextrose 2 (gm/ Premix) 50 mls @ 100 mls/hr IV ONETIME ONE Stop: 04/25/19 21:04 Last Admin: 04/25/19 20:44 Dose: 100 mls/hr Azithromycin 500 mg/ Sodium (Chloride) 500 mls @ 250 mls/hr IV Q24H [facility] Last Admin: 04/25/19 23:42 Dose: Not Given Iopamidol (Isovue Multipack-370 (76%)) 75 ml IVPUSH ONETIME ONE Stop: 04/26/19 15:53 Last Admin: 04/26/19 15:53 Dose: 75 ml Nitroglycerin (Nitro-Bid 2%) 0.5 gm TOP ONETIME ONE Stop: 04/25/19 19:37 Last Admin: 04/25/19 20:18 Dose: 0.5 gm Pantoprazole Sodium (Protonix Iv) 80 mg IVPUSH .BOLUS ONE Stop: 04/25/19 19:37 Last Admin: 04/25/19 20:17 Dose: 80 mg - My Orders Last 24 Hours: My Active Orders 04/26/19 14:02 Communication Order [RC] ROUTINE 04/26/19 16:00 Abdomen Pelvis wo Cont [CT] Urgent - Plan Plan:: 84 yo male who presented with chest pain who has consolidation seen on CXR. We are treating for pneumonia with Rocephin and azithromycin. We will check CT scan of chest due to chronic nonproductive cough without fever.
[2019-04-27] MEDS: Lisinopril 10 MG Tab PO SCH (09:06)
[2019-04-27] MEDS: Pantoprazole 40 MG Tab.CR PO SCH (09:07)
[2019-04-27] MEDS ORDERED: Alum Hydrox/Mag Hydrox/Simeth 15 ML, Lidocaine 2% 5 ML PO ONE ×2 (11:07)
--- NOTE | 2019-04-27 11:23 | CT ---
INDICATION: Retroperitoneal adenopathy TECHNIQUE: CT abdomen and pelvis without contrast. COMPARISON: None FINDINGS: Lower chest: Mild cardiomegaly. Coronary artery calcifications. Small right pleural effusion. Round atelectasis versus 6.4 x 4.1 cm mass in the right lower lobe. Liver: Unremarkable. Spleen: Unremarkable. Pancreas: Unremarkable. Gallbladder and bile ducts: Cholelithiasis. Adrenal glands: Unremarkable. Kidneys: There is residual intravenous contrast within the urinary collecting system. GI tract: Unremarkable. Vascular structures: Moderate atherosclerotic disease. Lymph nodes: Para-aortic lymph nodes measures up to 2.1 cm. Aortocaval adenopathy measures up to 2.3 cm. Portal caval lymph node measures up to 1.8 cm. 1.5 cm gastrohepatic lymph node. Periportal adenopathy measuring up to 2.6 cm.. No inguinal or iliac chain adenopathy. Miscellaneous: Small fat containing umbilical hernia. No free air or significant free fluid. Pelvic Organs: Enlarged prostate gland. There is a 5.4 x 2.7 x 4.3 cm nodular density arising from the superior aspect of the prostate which causes a filling defect in the urinary bladder. Tiny urinary bladder diverticula noted. Bones: Unremarkable for age. IMPRESSION: Retroperitoneal, periportal, and gastrohepatic lymphadenopathy. Enlarged prostate gland with nodular density arising from the prostate gland, causing any filling defect in the urinary bladder. It is unclear if this extends through the urinary bladder wall or if the bladder filling defect is caused by extrinsic compression by the nodule. Recommend urology consultation. Pulmonary mass versus round atelectasis in the right lower lobe. Small right pleural effusion. Cholelithiasis. Mild cardiomegaly with coronary artery disease. Please note that all CT scans at this facility use dose modulation, iterative reconstruction, and/or weight-based dosing when appropriate to reduce radiation dose to as low as reasonably achievable. Dictated by Priti Segovia MD @ Apr 27 2019 11:23AM Signed by Dr. Priti Segovia @ Apr 27 2019 11:23AM
[2019-04-27 12:38] VITALS: BP 156/84
--- NOTE | 2019-04-27 12:56 | PCM.DCSUM1 ---
Discharge Summary - Hospital Course Brief History: 84 yo male with pmh of hypertension, and diabetes who presents with one day history of right sided chest pain. The pain is sharp in nature and comes and goes. He has a productive cough since October of this year. About that time he states he has had a pneumonia. He denies any fevers, shortness of breath or abdominal pain. The medical record has him being seen in the ED three days ago with a complaint of hypertension and need for medication refills. He denies ever coming to the ED. Diagnosis: Stroke: No - Discharge Data Discharge Date: 04/27/19 Discharge Disposition: Home, Self-Care 01 Condition: Good - Patient Instructions Diet: Heart Healthy Diet Activity: As Tolerated Driving: Do Not Drive Showering/Bathing: May Shower Notify Provider of: Fever, Increased Pain, Swelling and Redness, Drainage, Nausea and/or Vomiting - Discharge Plan *PRESCRIPTION DRUG MONITORING PROGRAM REVIEWED*: Not Applicable *COPY OF PRESCRIPTION DRUG MONITORING REPORT IN PATIENT OSCAR: Not Applicable Prescriptions/Med Rec: Azithromycin 500 mg PO DAILY #2 tablet Cefdinir 300 mg PO BID #8 capsule Pantoprazole Sodium [Protonix] 40 mg PO DAILY #30 tablet. Home Medications: Home Meds Lisinopril 1 tab PO DAILY 05/11/15 [History] NIFEdipine [Nifedipine ER] 2 tab PO BID 05/11/15 [History] metFORMIN [Glucophage] 1 tab PO BID 05/11/15 [History] Aspirin [Halfprin] 81 mg PO DAILY 04/25/19 [History] Ascorbate Calcium [Vitamin C] 500 mg PO BID 04/26/19 [History] Cholecalciferol (Vitamin D3) [Vitamin D3] PO DAILY 04/26/19 [History] Krill Oil 04/26/19 [History] Ubidecarenone [Co Q-10] 04/26/19 [History] Vitamin E 04/26/19 [History] Azithromycin 500 mg PO DAILY #2 tablet 04/27/19 [Rx] Cefdinir 300 mg PO BID #8 capsule 04/27/19 [Rx] Pantoprazole Sodium [Protonix] 40 mg PO DAILY #30 tablet. 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 Confusion cleared, he would be very clear about past events, but had some memory loss of very recent events. Such as denying ED visit 3 days prior to admission. ACS ruled out with negative troponins. Chest pain remained intermittent, unable to link it with anything particular such as activity or eating. It happened whenever. CT of chest and abdomen pelvis obtained which revealed questionable atelectasis vs mass to R lower lobe on lung, measuring 6.4 x 4.1 cm. Re-imaging with Chest CT after CAP treatment recommended. ALso noted was enlarged nodular prostate which is possibly extending through the urinary bladder or compressing bladder. Dr Haskins was consulted over the phone, he recommended outpatient follow up with him. Garrett was informed of these findings and the treatment plan. He is aware and in agreement. He is eager to go home today. I will send him on Azithromycin and Cefdinir for CAP. I will also send home with Protonix x1 month. he is to follow up with PCP in [place] and Dr Haskins here in [place]. he is to return to ED or clinic if concerns should arise. - General Info Date of Service: 04/27/19 Admission Dx/Problem (Free Text: Chest pain, PNA Subjective Update: Doing well this morning, no chest pain. No concerns. Asking about going home. Functional Status: Reports: Pain Controlled, Tolerating Diet, Ambulating, Urinating - Review of Systems General: Reports: No Symptoms. Denies: Fever, Weakness, Fatigue Pulmonary: Reports: No Symptoms. Denies: Shortness of Breath Cardiovascular: Reports: Chest Pain (comes on and off to R chest) Gastrointestinal: Reports: No Symptoms. Denies: Abdominal Pain, Nausea, Vomiting Genitourinary: Reports: No Symptoms. Denies: Dysuria, Frequency, Burning Musculoskeletal: Reports: No Symptoms Skin: Reports: No Symptoms Neurological: Reports: No Symptoms Psychiatric: Reports: No Symptoms - Patient Data Vitals - Most Recent: Last Vital Signs Temp 97.9 F 04/27/19 11:00 Pulse 97 04/27/19 11:00 Resp 18 04/27/19 11:00 BP 156/84 H 04/27/19 11:00 Pulse Ox 94 L 04/27/19 11:00 Weight - Most Recent: 89.176 kg I&O - Last 24 hours: Intake & Output 04/26/19 04/27/19 04/27/19 22:59 06:59 14:59 Intake Total 2430 1980 Output Total 920 720 Balance 1510 1260 Lab Results - Last 24 hrs: Laboratory Results - last 24 hr 04/26/19 04/26/19 04/27/19 Range/Units 17:57 21:17 05:10 WBC 8.79 (4.0-11.0) K/uL RBC 3.40 L (4.50-5.90) M/uL Hgb 10.9 L (13.0-17.0) g/dL Hct 31.3 L (38.0-50.0) % MCV 92.1 (80.0-98.0) fL MCH 32.1 H (27.0-32.0) pg MCHC 34.8 (31.0-37.0) g/dL RDW Std Deviation 42.8 (28.0-62.0) fl RDW Coeff of Lupillo 13 (11.0-15.0) % Plt Count 169 (150-400) K/uL MPV 9.90 (7.40-12.00) fL Neut % (Auto) 79.7 (48.0-80.0) % Lymph % (Auto) 10.9 L (16.0-40.0) % [place] % (Auto) 6.7 (0.0-15.0) % Eos % (Auto) 2.4 (0.0-7.0) % Baso % (Auto) 0.3 (0.0-1.5) % Neut # (Auto) 7.0 H (1.4-5.7) K/uL Lymph # (Auto) 1.0 (0.6-2.4) K/uL [place] # (Auto) 0.6 (0.0-0.8) K/uL Eos # (Auto) 0.2 (0.0-0.7) K/uL Baso # (Auto) 0.0 (0.0-0.1) K/uL Nucleated RBC % 0.0 /100WBC Nucleated RBCs # 0 K/uL Sodium (136-148) mmol/L Potassium (3.5-5.1) mmol/L Chloride (98-107) mmol/L Carbon Dioxide (21.0-32.0) mmol/L BUN (7.0-18.0) mg/dL Creatinine (0.8-1.3) mg/dL Est Cr Clr Drug Dosing mL/min Estimated GFR (MDRD) ml/min Glucose (74-106) mg/dL POC Glucose 156 H 175 H (60-110) mg/dL Calcium (8.5-10.1) mg/dL Total Bilirubin (0.2-1.0) mg/dL AST (15-37) IU/L ALT (14-63) IU/L Alkaline Phosphatase (46-116) U/L Total Protein (6.4-8.2) g/dL Albumin (3.4-5.0) g/dL Globulin (2.6-4.0) g/dL Albumin/Globulin Ratio (0.9-1.6) 04/27/19 04/27/19 04/27/19 Range/Units 05:10 06:04 11:40 WBC (4.0-11.0) K/uL RBC (4.50-5.90) M/uL Hgb (13.0-17.0) g/dL Hct (38.0-50.0) % MCV (80.0-98.0) fL MCH (27.0-32.0) pg MCHC (31.0-37.0) g/dL RDW Std Deviation (28.0-62.0) fl RDW Coeff of Lupillo (11.0-15.0) % Plt Count (150-400) K/uL MPV (7.40-12.00) fL Neut % (Auto) (48.0-80.0) % Lymph % (Auto) (16.0-40.0) % [place] % (Auto) (0.0-15.0) % Eos % (Auto) (0.0-7.0) % Baso % (Auto) (0.0-1.5) % Neut # (Auto) (1.4-5.7) K/uL Lymph # (Auto) (0.6-2.4) K/uL [place] # (Auto) (0.0-0.8) K/uL Eos # (Auto) (0.0-0.7) K/uL Baso # (Auto) (0.0-0.1) K/uL Nucleated RBC % /100WBC Nucleated RBCs # K/uL Sodium 139 (136-148) mmol/L Potassium 4.7 (3.5-5.1) mmol/L Chloride 105 (98-107) mmol/L Carbon Dioxide 26.9 (21.0-32.0) mmol/L BUN 16 (7.0-18.0) mg/dL Creatinine 1.3 (0.8-1.3) mg/dL Est Cr Clr Drug Dosing 40.96 mL/min Estimated GFR (MDRD) 52.9 ml/min Glucose 128 H (74-106) mg/dL POC Glucose 126 H 142 H (60-110) mg/dL Calcium 8.7 (8.5-10.1) mg/dL Total Bilirubin 0.3 (0.2-1.0) mg/dL AST 23 (15-37) IU/L ALT 17 (14-63) IU/L Alkaline Phosphatase 92 (46-116) U/L Total Protein 6.8 (6.4-8.2) g/dL Albumin 2.4 L (3.4-5.0) g/dL Globulin 4.4 H (2.6-4.0) g/dL Albumin/Globulin Ratio 0.6 L (0.9-1.6) Med Orders - Current: Current Medications Acetaminophen (Tylenol) 325 mg PO Q4H PRN PRN Reason: Pain Ceftriaxone Sodium/Dextrose 1 (gm/ Premix) 50 mls @ 100 mls/hr IV Q24H [facility] Last Admin: 04/26/19 21:19 Dose: 100 mls/hr Azithromycin 500 mg/ Sodium (Chloride) 250 mls @ 125 mls/hr IV Q24H [facility] Last Admin: 04/27/19 01:03 Dose: 125 mls/hr Insulin Aspart (Novolog) 0 unit SUBCUT ACBED [facility]; Protocol Last Admin: 04/27/19 11:42 Dose: Not Given Lisinopril (Prinivil) 20 mg PO DAILY [facility] Last Admin: 04/27/19 09:06 Dose: 20 mg Metformin HCl (Glucophage) 850 mg PO BID [facility] Last Admin: 04/27/19 09:07 Dose: 850 mg Ondansetron HCl (Zofran) 4 mg IVPUSH Q4H PRN PRN Reason: Nausea Pantoprazole Sodium (Protonix) 40 mg PO DAILY [facility] Last Admin: 04/27/19 09:07 Dose: 40 mg Sodium Chloride (Saline Flush) 10 ml FLUSH ASDIRECTED PRN PRN Reason: Keep Vein Open Last Admin: 04/25/19 20:18 Dose: 10 ml Sodium Chloride (Saline Flush) 2.5 ml FLUSH ASDIRECTED PRN PRN Reason: Keep Vein Open Last Admin: 04/25/19 20:18 Dose: 2.5 ml Discontinued Medications Al Hydroxide/Mg Hydroxide 15 (ml/ Lidocaine HCl 5 ml) 0 ml PO ONETIME ONE Stop: 04/27/19 11:08 Last Admin: 04/27/19 11:33 Dose: 1 each Sodium Chloride (Normal Saline) Confirm Administered Dose 20 mls @ as directed .ROUTE .STK-MED ONE Stop: 04/25/19 20:12 Last Admin: 04/25/19 23:41 Dose: Not Given Ceftriaxone Sodium/Dextrose 2 (gm/ Premix) 50 mls @ 100 mls/hr IV ONETIME ONE Stop: 04/25/19 21:04 Last Admin: 04/25/19 20:44 Dose: 100 mls/hr Azithromycin 500 mg/ Sodium (Chloride) 500 mls @ 250 mls/hr IV Q24H [facility] Last Admin: 04/25/19 23:42 Dose: Not Given Sodium Chloride (Normal Saline) 1,000 mls @ 125 mls/hr IV ASDIRECTED [facility] Last Admin: 04/27/19 04:28 Dose: 125 mls/hr Iopamidol (Isovue Multipack-370 (76%)) 75 ml IVPUSH ONETIME ONE Stop: 04/26/19 15:53 Last Admin: 04/26/19 15:53 Dose: 75 ml Nitroglycerin (Nitro-Bid 2%) 0.5 gm TOP ONETIME ONE Stop: 04/25/19 19:37 Last Admin: 04/25/19 20:18 Dose: 0.5 gm Pantoprazole Sodium (Protonix Iv) 80 mg IVPUSH .BOLUS ONE Stop: 04/25/19 19:37 Last Admin: 04/25/19 20:17 Dose: 80 mg - Exam General: Reports: Alert, Oriented, Cooperative, No Acute Distress Lungs: Reports: Clear to Auscultation, Normal Respiratory Effort Cardiovascular: Reports: Regular Rate, Regular Rhythm GI/Abdominal Exam: Normal Bowel Sounds, Soft, Non-Tender, No Distention Extremities: Normal Inspection, Normal Range of Motion, Non-Tender Neurological: Reports: No New Focal Deficit Psy/Mental Status: Reports: Alert, Normal Affect, Normal Mood
== END 2019-04-27 14:40 | disposition home or self-care (01) | DRG 195 ==
LOC: MW.ED 18:46 → MW.MS 20:48
PROVIDERS: ADMIT Internal Medicine; ATTEND Internal Medicine
DX: J18.9 Pneumonia, unspecified organism (principal); I10 Essential (primary) hypertension; H54.7 Unspecified visual loss; R91.8 Other nonspecific abnormal finding of lung field; E11.9 Type 2 diabetes mellitus without complications; Z91.018 Allergy to other foods; Z79.82 Long term (current) use of aspirin; Z79.84 Long term (current) use of oral hypoglycemic drugs; Z79.899 Other long term (current) drug therapy; Z87.891 Personal history of nicotine dependence
CPT/HCPCS: 36415; 70360; 70360-26; 71260; 71260-26; 74022; 74022-26; 74176; 74176-26; 80048; 80053; 81001; 82962; 84484; 85025; 85610; 93005; 96365; 96375; 99285-25; A4217; A9270-GY; C9113; J0456; J0696; J1815-GY; J7040; J7050; Q9967

== ENCOUNTER 2019-10-29 01:56 | Emergency (ER) | payer MEDICARE ==
[2019-10-29 02:39] LABS: CARBON DIOXIDE,CO2 23.5 mmol/L (21.0-32.0); POTASSIUM,K 4.1 mmol/L (3.5-5.1)
--- NOTE | 2019-10-29 02:42 | CR ---
INDICATION: Chest pain TECHNIQUE: Chest radiograph 1 view COMPARISON: None FINDINGS: Mediastinum: The mediastinum is normal in appearance. The heart silhouette is normal in size and morphology. Lung: Right basilar consolidation and small right pleural effusion noted. No pneumothorax is identified. Bone and Soft tissue: Unremarkable for age. IMPRESSION: 1. Right basilar consolidation and small right pleural effusion noted. Dictated by Melvin Viera MD @ 10/29/2019 2:40:05 AM Dictated by: Melvin Viera MD @ 10/29/2019 02:40:10 (Electronically Signed)
--- NOTE | 2019-10-29 03:10 | EDM.PDOC ---
ED HPI GENERAL MEDICAL PROBLEM - General Chief Complaint: General Stated Complaint: WEAKNESS Time Seen by Provider: 10/29/19 02:01 Source of Information: Reports: Patient History Limitations: Reports: No Limitations - History of Present Illness INITIAL COMMENTS - FREE TEXT/NARRATIVE: This 84-year-old gentleman presents to the emergency room after 3 days of weakness and inability to get up. Patient is blind and has recent diagnosis of liver cancer. Patient presents the emergency room florid jaundice. Onset: Today Duration: Day(s):, Getting Worse - Related Data Allergies Allergy/AdvReac Type Severity Reaction Status Date / Time Grapfruit Allergy Cannot Uncoded 10/29/19 02:01 Remember Home Meds: Home Meds Lisinopril 0 tab PO DAILY 05/11/15 [History] NIFEdipine [Nifedipine ER] 0 tab PO BID 05/11/15 [History] metFORMIN [Glucophage] 1 tab PO BID 05/11/15 [History] Aspirin [Halfprin] 0 mg PO DAILY 04/25/19 [History] Ascorbate Calcium [Vitamin C] 500 mg PO BID 04/26/19 [History] Cholecalciferol (Vitamin D3) [Vitamin D3] PO DAILY 04/26/19 [History] Krill Oil 04/26/19 [History] Ubidecarenone [Co Q-10] 04/26/19 [History] Vitamin E 0 04/26/19 [History] Pantoprazole Sodium [Protonix] 0 mg PO DAILY 10/29/19 [History] Past Medical History HEENT History: Reports: Cataract Other HEENT History: 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 Cardiovascular History: Reports: Hypertension Gastrointestinal History: Reports: GERD Genitourinary History: Reports: Prostate Disorder Musculoskeletal History: Reports: Arthritis Endocrine/Metabolic History: Reports: Diabetes, Type II Oncologic (Cancer) History: Reports: Liver - Infectious Disease History Infectious Disease History: Reports: None - Past Surgical History Male Surgical History: Reports: Other (See Below) Other Male Surgeries/Procedures: "prostate surgery in 2011" Social & Family History - Family History Family Medical History: Noncontributory - Tobacco Use Smoking Status *Q: Never Smoker - Caffeine Use Caffeine Use: Reports: Coffee Caffeine Use Comment: 1 pot of coffee every morning - Recreational Drug Use Recreational Drug Use: No ED ROS GENERAL - Review of Systems Review Of Systems: Comprehensive ROS is negative, except as noted in HPI. Constitutional: Reports: Malaise, Weakness, Fatigue HEENT: Reports: No Symptoms Respiratory: Reports: No Symptoms Cardiovascular: Reports: No Symptoms Endocrine: Reports: No Symptoms GI/Abdominal: Reports: No Symptoms : Reports: No Symptoms Musculoskeletal: Reports: No Symptoms Skin: Reports: Jaundice Neurological: Reports: No Symptoms Psychiatric: Reports: No Symptoms Hematologic/Lymphatic: Reports: No Symptoms Immunologic: Reports: No Symptoms ED EXAM, GENERAL - Physical Exam Exam: See Below Exam Limited By: No Limitations General Appearance: Alert, WD/WN, No Apparent Distress, Thin, Cachetic Eye Exam: Bilateral Eye: Normal Fundi, Normal Inspection Ear Exam: Bilateral Ear: Auricle Normal, Canal Normal, TM normal Nose: Normal Inspection, Normal Mucosa Throat/Mouth: Normal Inspection, Normal Lips, Normal Teeth Head: Atraumatic, Normocephalic Neck: Normal Inspection, Supple, Non-Tender Respiratory/Chest: No Respiratory Distress, Lungs Clear, Normal Breath Sounds, No Accessory Muscle Use Cardiovascular: Normal Peripheral Pulses, Regular Rate, Rhythm, No Edema, No JVD , No Murmur, No Rub GI/Abdominal: Normal Bowel Sounds, Soft, Non-Tender, No Distention, No Abnormal Bruit (Male) Exam: Deferred Rectal (Males) Exam: Deferred Back Exam: Normal Inspection, Full Range of Motion Extremities: Normal Inspection, Normal Range of Motion, No Pedal Edema, Normal Capillary Refill Neurological: Alert, Oriented, CN II-XII Intact, Normal Cognition, Normal Reflexes, No Motor/Sensory Deficits Psychiatric: Normal Affect, Normal Mood Skin Exam: Warm, Dry, Intact, Normal Color, No Rash Lymphatic: No Adenopathy Course - Vital Signs Text/Narrative:: This patient presents with liver failure and probable liver cancer. Patient has an INR of 7.2 and LFTs are all severely elevated patient has been accepted by Dr. Amaya at [facility] patient is scheduled to see the oncology department Last Recorded V/S: Last Vital Signs Temp 97.8 F 10/29/19 01:56 Pulse 85 10/29/19 01:56 Resp 18 10/29/19 01:56 BP 143/70 H 10/29/19 01:56 Pulse Ox 98 10/29/19 01:56 - Orders/Labs/Meds Labs: Laboratory Tests 10/29/19 10/29/19 10/29/19 Range/Units 02:10 02:10 02:10 WBC 7.00 (4.0-11.0) K/uL RBC 3.03 L (4.50-5.90) M/uL Hgb 10.0 L (13.0-17.0) g/dL Hct 27.2 L (38.0-50.0) % MCV 89.8 (80.0-98.0) fL MCH 33.0 H (27.0-32.0) pg MCHC 36.8 (31.0-37.0) g/dL RDW Std Deviation 58.3 (28.0-62.0) fl RDW Coeff of Lupillo 19 H (11.0-15.0) % Plt Count 189 (150-400) K/uL MPV 10.60 (7.40-12.00) fL Neut % (Auto) 82.3 H (48.0-80.0) % Lymph % (Auto) 7.9 L (16.0-40.0) % [place] % (Auto) 9.6 (0.0-15.0) % Eos % (Auto) 0.1 (0.0-7.0) % Baso % (Auto) 0.1 (0.0-1.5) % Neut # (Auto) 5.8 H (1.4-5.7) K/uL Lymph # (Auto) 0.6 (0.6-2.4) K/uL [place] # (Auto) 0.7 (0.0-0.8) K/uL Eos # (Auto) 0.0 (0.0-0.7) K/uL Baso # (Auto) 0.0 (0.0-0.1) K/uL INR 7.90 H* Sodium 134 L (136-148) mmol/L Potassium 4.1 (3.5-5.1) mmol/L Chloride 99 (98-107) mmol/L Carbon Dioxide 23.5 (21.0-32.0) mmol/L BUN 32 H (7.0-18.0) mg/dL Creatinine 1.7 H (0.8-1.3) mg/dL Est Cr Clr Drug Dosing 31.32 mL/min Estimated GFR (MDRD) 38.8 ml/min Glucose 111 H (74-106) mg/dL Calcium 9.6 (8.5-10.1) mg/dL Total Bilirubin 21.3 H (0.2-1.0) mg/dL AST 266 H (15-37) IU/L ALT 183 H (14-63) IU/L Alkaline Phosphatase 1093 H (46-116) U/L Ammonia (19-54) ug/dL 10/29/19 Range/Units 02:10 WBC (4.0-11.0) K/uL RBC (4.50-5.90) M/uL Hgb (13.0-17.0) g/dL Hct (38.0-50.0) % MCV (80.0-98.0) fL MCH (27.0-32.0) pg MCHC (31.0-37.0) g/dL RDW Std Deviation (28.0-62.0) fl RDW Coeff of Lupillo (11.0-15.0) % Plt Count (150-400) K/uL MPV (7.40-12.00) fL Neut % (Auto) (48.0-80.0) % Lymph % (Auto) (16.0-40.0) % [place] % (Auto) (0.0-15.0) % Eos % (Auto) (0.0-7.0) % Baso % (Auto) (0.0-1.5) % Neut # (Auto) (1.4-5.7) K/uL Lymph # (Auto) (0.6-2.4) K/uL [place] # (Auto) (0.0-0.8) K/uL Eos # (Auto) (0.0-0.7) K/uL Baso # (Auto) (0.0-0.1) K/uL INR Sodium (136-148) mmol/L Potassium (3.5-5.1) mmol/L Chloride (98-107) mmol/L Carbon Dioxide (21.0-32.0) mmol/L BUN (7.0-18.0) mg/dL Creatinine (0.8-1.3) mg/dL Est Cr Clr Drug Dosing mL/min Estimated GFR (MDRD) ml/min Glucose (74-106) mg/dL Calcium (8.5-10.1) mg/dL Total Bilirubin (0.2-1.0) mg/dL AST (15-37) IU/L ALT (14-63) IU/L Alkaline Phosphatase (46-116) U/L Ammonia < 17 L (19-54) ug/dL Departure - Departure Time of Disposition: 03:09 Disposition: DC/Tfer to Acute Hospital 02 Condition: Good Clinical Impression: Liver failure without hepatic coma - Discharge Information Referrals: PCP,Not In Area [Primary Care Provider] - Sepsis Event Note - Evaluation Sepsis Screening Result: No Definite Risk - Focused Exam Vital Signs: Vital Signs Temp Pulse Resp BP Pulse Ox 10/29/19 01:56 97.8 F 85 18 143/70 H 98 Date Exam was Performed: 10/29/19 Time Exam was Performed: 03:05
[2019-10-29 03:34] VITALS: BP 123/65; PULSE 84
== END 2019-10-29 04:43 ==
LOC: MW.ED 01:56
DX: K72.90 Hepatic failure, unspecified without coma (principal); I10 Essential (primary) hypertension; K21.9 Gastro-esophageal reflux disease without esophagitis; E11.9 Type 2 diabetes mellitus without complications; Z79.82 Long term (current) use of aspirin; Z79.84 Long term (current) use of oral hypoglycemic drugs; Z79.899 Other long term (current) drug therapy; Z91.018 Allergy to other foods
CPT/HCPCS: 36415; 71045; 71045-26; 80053; 82140; 85025; 85610; 93005; 99285; 99285-25